=== PATIENT | female | born 1970 | race Caucasian/White ===

== ENCOUNTER 2017-10-22 21:40 | Inpatient (IN) | payer OTHER, MEDICAID ==
[2017-10-22] MEDS: SODIUM CHLORIDE 0.9% 1L BAG IV* (22:57)
[2017-10-22] MEDS: morphine 2 MG INJ IV (23:04)
[2017-10-22] MEDS: CEFEPIME 2GM/50 ML (PMX) 50 ML IVPB (23:04)
[2017-10-22] MEDS: ACETAMINOPHEN 325 MG TAB PO (23:04)
[2017-10-22] MEDS: ONDANSETRON 4 MG INJ IV (23:04)
[2017-10-22 23:20] LABS: ADD MAN DIFF? NO
[2017-10-22 23:22] LABS: ABNORMAL IP MESSAGE 1; BASOPHILS % 0.1 % (0.0-2.0); HEMATOCRIT 33.6 % (37.0-47.0); LYMPHOCYTES # 0.5 10^3/ul (0.8-2.9); LYMPHOCYTES % 3.7 % (15.0-51.0); MEAN CORPUSCULAR HEMOGLOBIN 26.3 pg (29.0-33.0); MEAN CORPUSCULAR HGB CONC 32.7 g/dl (32.0-37.0); MEAN CORPUSCULAR VOLUME 80.2 fl (82.0-101.0); MEAN PLATELET VOLUME 11.2 fl (7.4-10.4); MONOCYTE # 0.7 10^3/ul (0.3-0.9); MONOCYTES % 4.7 % (0.0-11.0); NEUTROPHIL # 12.5 10^3/ul (1.6-7.5); NEUTROPHILS % 91.1 % (39.0-77.0); PLATELET COUNT 180 10^3/UL (140-415); RED BLOOD COUNT 4.19 10^6/ul (4.20-5.40)
[2017-10-22 23:22] LABS: WHITE BLOOD COUNT 13.7 10^3/ul (4.8-10.8)
[2017-10-22 23:24] LABS: POSITIVE DIFF @See below
[2017-10-22 23:39] LABS: INR 1.12; PROTIME 14.6 Sec (11.9-14.9); PT RATIO 1.1
[2017-10-22 23:40] LABS: ALANINE AMINOTRANSFERASE 28 IU/L (13-69); ALBUMIN 3.7 g/dl (3.3-4.9); ALBUMIN/GLOBULIN RATIO 1.05; ALKALINE PHOSPHATASE 81 IU/L (42-121); ANION GAP 18 (8-16); ASPARTATE AMINO TRANSFERASE 18 IU/L (15-46); BILIRUBIN,INDIRECT 0.3 mg/dl (0-1.1); BILIRUBIN,TOTAL 0.3 mg/dl (0.2-1.3); BLOOD UREA NITROGEN 9 mg/dl (7-20); CALCIUM 8.3 mg/dl (8.4-10.2); CARBON DIOXIDE 22 mmol/L (21-31); CHLORIDE 101 mmol/L (97-110); CREATININE 0.69 mg/dl (0.44-1.00); GLUCOSE 177 mg/dl (70-220); POTASSIUM 3.5 mmol/L (3.5-5.1); SODIUM 137 mmol/L (135-144); TOTAL PROTEIN 7.2 g/dl (6.1-8.1)
[2017-10-22 23:44] LABS: LACTIC ACID 1.1 mmol/L (0.5-2.0)
[2017-10-22 23:50] LABS: PARTIAL THROMBOPLASTIN TIME 37.4 Sec (25.0-35.0)
[2017-10-22 23:55] LABS: TROPONIN-I < 0.012 ng/ml (0.00-0.12)
[2017-10-23 00:10] LABS: ADD UMIC YES; UR ASCORBIC ACID 40 mg/dL (NEGATIVE); UR BILIRUBIN (Dip) NEGATIVE (NEGATIVE); UR BLOOD (Dip) NEGATIVE (NEGATIVE); UR CLARITY CLEAR (CLEAR); UR COLOR YELLOW (YELLOW); UR GLUCOSE (Dip) 1+ mg/dL (NEGATIVE); UR KETONES (Dip) 1+ mg/dL (NEGATIVE); UR LEUKOCYTE ESTERASE (Dip) NEGATIVE Leu/ul (NEGATIVE); UR NITRITE (Dip) NEGATIVE (NEGATIVE); UR RBC 5 /HPF (0-5); UR SPECIFIC GRAVITY (Dip) 1.024 (1.003-1.030); UR SQUAMOUS EPITHELIAL CELL FEW /HPF (FEW); UR TOTAL PROTEIN (Dip) 1+ mg/dl (NEGATIVE); UR UROBILINOGEN (Dip) 2+ mg/dL (NEGATIVE); UR WBC 0 /HPF (0-5)
[2017-10-23 01:34] LABS: LACTIC ACID 1.1 mmol/L (0.5-2.0)
[2017-10-23] MEDS ORDERED: ONDANSETRON 4 MG INJ IV ×2 (03:00→07:00)
[2017-10-23] MEDS ORDERED: ACETAMINOPHEN 325 MG TAB PO ×2 (03:00→07:00)
[2017-10-23] MEDS: KETOROLAC 30 MG INJ IV (04:35)
[2017-10-23] MEDS: SOD CHLORIDE 0.9% 1,000 ML IV ×2 (05:50→07:44)
[2017-10-23 06:35] LABS: LACTIC ACID 0.9 mmol/L (0.5-2.0)
[2017-10-23] MEDS ORDERED: ALBUTEROL/IPRATROPIUM (NEB) 3 ML AMP HHN (07:00)
[2017-10-23] MEDS ORDERED: NACL 0.9% 3 ML SYG IV (07:00)
[2017-10-23] MEDS ORDERED: morphine 2 MG INJ IV (07:00)
[2017-10-23 07:30] LABS: ADD MAN DIFF? NO
[2017-10-23 07:33] LABS: BASOPHILS % 0.1 % (0.0-2.0); EOSINOPHILS % 0.1 % (0.0-7.0); HEMATOCRIT 29.8 % (37.0-47.0); HEMOGLOBIN 9.4 g/dl (12.0-16.0); LYMPHOCYTES # 1.1 10^3/ul (0.8-2.9); LYMPHOCYTES % 6.6 % (15.0-51.0); MEAN CORPUSCULAR HGB CONC 31.5 g/dl (32.0-37.0); MEAN CORPUSCULAR VOLUME 82.5 fl (82.0-101.0); MEAN PLATELET VOLUME 11.4 fl (7.4-10.4); MONOCYTES % 6.2 % (0.0-11.0); NEUTROPHIL # 13.7 10^3/ul (1.6-7.5); PLATELET COUNT 151 10^3/UL (140-415); RED BLOOD COUNT 3.61 10^6/ul (4.20-5.40)
[2017-10-23 07:40] LABS: ALANINE AMINOTRANSFERASE 25 IU/L (13-69); ALBUMIN 2.6 g/dl (3.3-4.9); ALBUMIN/GLOBULIN RATIO 0.89; ALKALINE PHOSPHATASE 66 IU/L (42-121); ANION GAP 17 (8-16); ASPARTATE AMINO TRANSFERASE 18 IU/L (15-46); BILIRUBIN,INDIRECT 0.2 mg/dl (0-1.1); BILIRUBIN,TOTAL 0.2 mg/dl (0.2-1.3); BLOOD UREA NITROGEN 7 mg/dl (7-20); CALCIUM 7.7 mg/dl (8.4-10.2); CARBON DIOXIDE 22 mmol/L (21-31); CHLORIDE 109 mmol/L (97-110); CREATININE 0.55 mg/dl (0.44-1.00); GLUCOSE 117 mg/dl (70-220); POTASSIUM 3.8 mmol/L (3.5-5.1); SODIUM 144 mmol/L (135-144); TOTAL PROTEIN 5.5 g/dl (6.1-8.1)
[2017-10-23 08:29] LABS: HEMOGLOBIN A1C 6.1 % (0-5.9)
[2017-10-23] MEDS: OSELTAMIVIR 75 MG CAP PO (08:51)
[2017-10-23] MEDS: LEVOFLOXACIN 500MG/D5W (PMX) 100 ML IVPB (08:51)
[2017-10-23] MEDS: HEPARIN 5,000 UNIT/0.5 ML VIAL SC (08:53)
== END 2017-10-23 11:30 | disposition home or self-care (01) | DRG 872 ==
LOC: MS1 10-23 02:41 → FTE 21:40
DX: A41.9 Sepsis, unspecified organism (principal); J32.9 Chronic sinusitis, unspecified; J40 Bronchitis, not specified as acute or chronic
CPT/HCPCS: 36415; 71045; 80053; 81001; 83036; 83605; 84484; 85025; 85610; 85730; 87040; 87086; 87400; 93005; 96365; 96372; 96375; 99285-25